=== PATIENT | female | born 1985 | race Caucasian/White ===

== ENCOUNTER 2025-01-23 22:28 | Emergency (ER) | payer SELFPAY ==
[~2025-01-23] VITALS: Ht 162.6 cm; Wt 46.0 kg
[2025-01-23 22:43] VITALS: RESP 16; O2SAT 100
[2025-01-23] MEDS: ACETAMINOPHEN 325MG TABLET PO ONE (23:56)
[2025-01-24] MEDS ORDERED: NAPR220C61 MT (01:09)
[2025-01-24 02:24] VITALS: BP 96/56; PULSE 61; TEMP 36.7; O2SAT 99
== END 2025-01-24 02:27 | disposition home or self-care (01) ==
LOC: ER 22:28
DX: S89.92XA Unspecified injury of left lower leg, initial encounter (principal); G89.11 Acute pain due to trauma; M25.562 Pain in left knee; Z88.1 Allergy status to other antibiotic agents; Z79.899 Other long term (current) drug therapy; W54.1XXA Struck by dog, initial encounter; Y93.89 Activity, other specified; Y92.89 Other specified places as the place of occurrence of the external cause; Y99.8 Other external cause status
CPT/HCPCS: 29505; 73564; 99283